=== PATIENT | male | born 1955 | race African-American/Black ===

== ENCOUNTER 2018-09-12 18:56 | Inpatient (IN) ==
[2018-09-12 19:38] LABS: Basophils # 0.1 10*3/uL (0.0-0.2); Basophils % 0.4 % (0.0-0.8); Eosinophils # 0.2 10*3/uL (0.0-0.87); Eosinophils % 1.6 % (0.00-10.9); Hematocrit 33.8 VOL% (42.0-52.0); Hemoglobin 11.3 GM/DL (14.0-18.0); Immature Granulocytes % 0.8 %; Lymphocytes # 1.5 10*3/uL (1.4-4.0); Lymphocytes % 11.5 % (21.2-54.2); Mean Corpuscular HGB Conc 33.4 GM/DL (32-36); Mean Corpuscular Volume 92.9 FL (87-102); Mean Platelet Volume 8.8 FL (9.6-12.0); Monocytes % 4.3 % (1.7-12.7); NRBC # 0.03 10*3/uL; Neutrophils % 81.4 % (38.7-73.9); Platelet Count 185 T/CUMM (130-400); Red Blood Count 3.64 MC/CUMM (3.8-5.5); Red Cell Distribution Width 13.2 % (9.3-17.3); White Blood Count 12.9 T/CUMM (4-12)
[2018-09-12 19:51] LABS: INR 0.9; PT Patient Result 10.3 SECS
[2018-09-12 19:56] LABS: Alanine Aminotransferase 28 U/L (16-61); Albumin 3.4 G/DL (3.4-5.0); Alkaline Phosphatase 88 U/L (45-117); Aspartate Amino Transferase 59 U/L (0-37); Blood Urea Nitrogen 10 MG/DL (7-18); Glucose 94 MG/DL (74-106); Osmolality,Calculated 275.5 MOS/KG (273-304); Total Protein 8.7 G/DL (6.4-8.3)
[2018-09-12] MEDS ORDERED: POTASSIUM CHLORIDE 20 MEQ TABLET PO STA (21:10)
[2018-09-12] MEDS ORDERED: SODIUM CHLORIDE 0.9% 1,850 ML IV ONE (21:19)
[2018-09-12] MEDS ORDERED: THIAMINE INJ 100 MG, FOLIC ACID INJ 1 MG, MAGNESIUM SULF INJ 2 GM, MULTIVITAMIN INJ 10 ... IV ONE (21:26)
[2018-09-12] MEDS ORDERED: PIPERACILLIN/TAZOBACTAM 3,375 MG in SODIUM CHLORIDE 0.9% 100 ML IV SCH (21:30)
[2018-09-12 23:20] LABS: Bacteria,Urine Many /HPF (Few); Bilirubin,Urine Negative (Negative); Glucose,Urine (UA) Negative (Negative); Ketones,Urine Negative (Negative); Mucus,Urine Occasional /LPF (Occasional); Nitrite,Urine Negative (Negative); Protein,Urine >=500 MG/DL; Urine Specific Gravity 1.022 (1.001-1.035); Urine Urobilinogen < 2.0 EU/DL (0.2-1.0)
[2018-09-12 23:23] LABS: Apearance,Urine Turbid (Clear); RBC,Urine TNTC /HPF (0-4); Urine Color Red (Yellow)
[2018-09-12 23:25] LABS: WBC,Urine 40 /HPF (0-6)
[2018-09-12 23:26] LABS: Blood, Urine Large mg/dL (Negative)
[2018-09-13] MEDS ORDERED: BISACODYL 5 MG TABLET PO PRN (01:48)
[2018-09-13] MEDS ORDERED: diphenhydrAMINE CAP 25 MG CAPSULE PO PRN (01:48)
[2018-09-13] MEDS ORDERED: ACETAMINOPHEN 325 MG TABLET PO PRN (01:48)
[2018-09-13] MEDS ORDERED: ONDANSETRON 4 MG/2 ML VIAL IV PRN (01:48)
[2018-09-13] MEDS ORDERED: SODIUM CHLORIDE 0.9% 1,000 ML IV SCH (02:00)
[2018-09-13 02:49] LABS: Risk Ratio 1.4
[2018-09-13] MEDS: hydrALAZINE 20 MG/1 ML VIAL IV PRN ×2 (04:29→11:07)
[2018-09-13] MEDS: MORPHINE 4 MG/1 ML VIAL IV PRN ×2 (06:43→10:40)
[2018-09-13] MEDS: MEROPENEM 500 MG in SODIUM CHLORIDE 0.9% 100 ML IV SCH ×2 (06:47→18:00)
[2018-09-13 08:02] LABS: PT Patient Result 10.9 SECS; Partial Thromboplastin Time 25.6 SECS (0-40)
[2018-09-13] MEDS ORDERED: LACTATED RINGERS 1,000 ML IV ONE (08:02)
[2018-09-13 08:07] LABS: Basophils % 0.2 % (0.0-0.8); Eosinophils % 0.1 % (0.00-10.9); Hematocrit 25.6 VOL% (42.0-52.0); Immature Granulocytes % 0.7 %; Immature Granulocytes Absolute 0.12 #; Lymphocytes # 0.7 10*3/uL (1.4-4.0); Lymphocytes % 3.6 % (21.2-54.2); Mean Corpuscular Volume 92.4 FL (87-102); Monocytes % 3.7 % (1.7-12.7); Neutrophils % 91.7 % (38.7-73.9); Platelet Count 169 T/CUMM (130-400); Red Cell Distribution Width 13.5 % (9.3-17.3)
[2018-09-13 08:11] LABS: Red Blood Count 2.77 MC/CUMM (3.8-5.5); White Blood Count 18.3 T/CUMM (4-12)
[2018-09-13 08:12] LABS: Hemoglobin 8.7 GM/DL (14.0-18.0)
[2018-09-13] MEDS ORDERED: SODIUM CHLORIDE 0.9% 1,000 ML IV PRN ×2 (08:15→14:46)
[2018-09-13 08:25] LABS: Band Neutrophils 5 % (0-10); Calcium 8.3 MG/DL (8.5-10.1); Hypochromasia 1+; Lymphocytes 3 % (20-55); Osmolality,Calculated 276.7 MOS/KG (273-304); Platelet Estimate Adequate; Segmented Neutrophils 88 % (50-85); Total Cells Counted 100; Total Protein 7.5 G/DL (6.4-8.3)
[2018-09-13] MEDS ORDERED: THIAMINE INJ 100 MG, FOLIC ACID INJ 1 MG, MULTIVITAMIN INJ 10 ML in SODIUM CHLORIDE 0.9... IV ONE (09:00)
[2018-09-13 10:02] LABS: Folate 5.2 NG/ML (5.4-24.0)
[2018-09-13] MEDS: DUTASTERIDE 0.5 MG CAPSULE PO SCH (13:21)
[2018-09-13] MEDS: chlordiazePOXIDE 25 MG CAPSULE PO SCH ×3 (13:21→20:53)
[2018-09-13 15:58] LABS: Hepatitis B Core IgM Quant 0.05 Index; Hepatitis B Surface Ag Quant < 0.10 Index; Hepatitis B Surface Ag Result Negative (Negative); Hepatitis C Virus Ab Quant 0.06 Index; Hepatitis C Virus Ab Result Negative (Negative)
[2018-09-13] MEDS: LACTATED RINGERS 1,000 ML IV SCH ×2 (17:30→18:00)
[2018-09-13 18:18] LABS: Hematocrit 34.9 VOL% (42.0-52.0); Hemoglobin 11.5 GM/DL (14.0-18.0)
[2018-09-13] MEDS: PANTOPRAZOLE 40 MG TABLET PO SCH (19:59)
[2018-09-13] MEDS: FOLIC ACID 1 MG TABLET PO SCH (20:53)
[2018-09-14] MEDS: LACTATED RINGERS 1,000 ML IV SCH ×2 (01:02→11:29)
[2018-09-14 01:31] LABS: Hematocrit 30.4 VOL% (42.0-52.0); Hemoglobin 10.5 GM/DL (14.0-18.0)
[2018-09-14] MEDS: MEROPENEM 500 MG in SODIUM CHLORIDE 0.9% 100 ML IV SCH ×3 (02:38→19:00)
[2018-09-14] MEDS: chlordiazePOXIDE 25 MG CAPSULE PO SCH ×4 (02:40→17:00)
[2018-09-14 05:05] LABS: Basophils % 0.2 % (0.0-0.8); Eosinophils # 0.3 10*3/uL (0.0-0.87); Eosinophils % 3.4 % (0.00-10.9); Hematocrit 29.2 VOL% (42.0-52.0); Hemoglobin 9.9 GM/DL (14.0-18.0); Immature Granulocytes % 0.6 %; Immature Granulocytes Absolute 0.06 #; Lymphocytes # 1.3 10*3/uL (1.4-4.0); Lymphocytes % 13.6 % (21.2-54.2); Mean Corpuscular HGB Conc 33.9 GM/DL (32-36); Mean Corpuscular Volume 90.4 FL (87-102); Mean Platelet Volume 9.8 FL (9.6-12.0); Monocytes % 6.6 % (1.7-12.7); Neutrophils % 75.6 % (38.7-73.9); Platelet Count 118 T/CUMM (130-400); Red Blood Count 3.23 MC/CUMM (3.8-5.5); Red Cell Distribution Width 13.8 % (9.3-17.3); White Blood Count 9.5 T/CUMM (4-12)
[2018-09-14 05:42] LABS: Albumin 2.1 G/DL (3.4-5.0); Bilirubin,Direct 0.31 MG/DL (0.0-0.20); Bilirubin,Indirect 1.8 MG/DL (0.0-1.0); Bilirubin,Total 2.1 MG/DL (0.2-1.0); Total Protein 5.9 G/DL (6.4-8.3)
[2018-09-14 07:23] LABS: Hematocrit 33.1 VOL% (42.0-52.0); Hemoglobin 11.4 GM/DL (14.0-18.0)
[2018-09-14] MEDS: DUTASTERIDE 0.5 MG CAPSULE PO SCH (08:27)
[2018-09-14] MEDS: PANTOPRAZOLE 40 MG TABLET PO SCH ×2 (08:27→19:57)
[2018-09-14] MEDS: FOLIC ACID 1 MG TABLET PO SCH ×2 (08:28→21:39)
[2018-09-14 08:37] LABS: Albumin 2.5 G/DL (3.4-5.0); Bilirubin,Total 1.5 MG/DL (0.2-1.0); Calcium 8.6 MG/DL (8.5-10.1); Osmolality,Calculated 272.7 MOS/KG (273-304); Total Protein 6.9 G/DL (6.4-8.3)
[2018-09-14] MEDS ORDERED: PROPOFOL 200 MG/20 ML VIAL IV ONE (09:00)
[2018-09-14] MEDS ORDERED: LIDOCAINE 2% 5 ML VIAL ONE (09:00)
[2018-09-14] MEDS: BISACODYL 5 MG TABLET PO SCH ×2 (11:31→18:02)
[2018-09-14] MEDS: ALBUTEROL/IPRATROPIUM 3 ML NEB RESP TX SCH ×4 (12:11→23:35)
[2018-09-14 13:06] LABS: Hematocrit 30.4 VOL% (42.0-52.0); Hemoglobin 10.4 GM/DL (14.0-18.0)
[2018-09-14] MEDS: SKIN HEALING OINT (AQUAPHOR) 50 GM TUBE TOP SCH (13:27)
[2018-09-14] MEDS ORDERED: POLYETHYLENE GLYCOL POWDER 255 GM BOTTLE PO ONE (18:00)
[2018-09-14] MEDS ORDERED: MAGNESIUM CITRATE 300 ML BOTTLE PO ONE (21:00)
[2018-09-14] MEDS: LORazepam 2 MG/1 ML VIAL IV PRN (21:47)
[2018-09-15] MEDS: chlordiazePOXIDE 25 MG CAPSULE PO SCH ×3 (00:30→15:27)
[2018-09-15 00:57] LABS: Hematocrit 29.2 VOL% (42.0-52.0); Hemoglobin 9.6 GM/DL (14.0-18.0)
[2018-09-15] MEDS ORDERED: LIDOCAINE 100 MG/5 ML SYRINGE ONE (01:49)
[2018-09-15] MEDS ORDERED: PROPOFOL 200 MG/20 ML VIAL IV ONE (01:49)
[2018-09-15] MEDS: LACTATED RINGERS 1,000 ML IV SCH ×2 (02:35→02:37)
[2018-09-15] MEDS: BISACODYL 5 MG TABLET PO SCH (02:36)
[2018-09-15] MEDS: MEROPENEM 500 MG in SODIUM CHLORIDE 0.9% 100 ML IV SCH ×2 (02:36→10:00)
[2018-09-15] MEDS: ALBUTEROL/IPRATROPIUM 3 ML NEB RESP TX SCH ×6 (02:50→23:30)
[2018-09-15 06:07] LABS: Basophils % 0.1 % (0.0-0.8); Eosinophils # 0.3 10*3/uL (0.0-0.87); Eosinophils % 3.6 % (0.00-10.9); Hematocrit 31.5 VOL% (42.0-52.0); Hemoglobin 10.4 GM/DL (14.0-18.0); Immature Granulocytes % 0.9 %; Immature Granulocytes Absolute 0.07 #; Lymphocytes # 1.2 10*3/uL (1.4-4.0); Lymphocytes % 15.5 % (21.2-54.2); Mean Corpuscular Volume 93.8 FL (87-102); Mean Platelet Volume 9.4 FL (9.6-12.0); Monocytes % 8.4 % (1.7-12.7); Neutrophils % 71.5 % (38.7-73.9); Platelet Count 148 T/CUMM (130-400); Red Blood Count 3.36 MC/CUMM (3.8-5.5); Red Cell Distribution Width 14.3 % (9.3-17.3); White Blood Count 7.8 T/CUMM (4-12)
[2018-09-15] MEDS: PANTOPRAZOLE 40 MG TABLET PO SCH ×2 (06:16→19:28)
[2018-09-15 06:23] LABS: Calcium 8.7 MG/DL (8.5-10.1); Osmolality,Calculated 276.4 MOS/KG (273-304)
[2018-09-15 06:57] LABS: Albumin (SPE) Rel % 52.6 %; Alpha 1 (SPE) Rel % 3.5 %; Alpha 2 (SPE) Rel % 7.9 %; Gamma (SPE) Rel % 19.9 %
[2018-09-15] MEDS ORDERED: MAGNESIUM SULF RIDER 2 GM in PREMIX 1 EACH IV ONE (07:28)
[2018-09-15 07:32] LABS: Albumin (SPE) 3.2 G/DL (3.2-5.3); Alpha 1 (SPE) 0.2 G/DL (0.1-0.4); Alpha 2 (SPE) 0.5 G/DL (0.4-1.0)
[2018-09-15 07:33] LABS: Beta (SPE) Rel % 16.1 %; Gamma (SPE) 1.2 G/DL (0.7-1.7)
[2018-09-15] MEDS: DUTASTERIDE 0.5 MG CAPSULE PO SCH (08:40)
[2018-09-15] MEDS: FOLIC ACID 1 MG TABLET PO SCH ×2 (08:40→20:37)
[2018-09-15] MEDS: SKIN HEALING OINT (AQUAPHOR) 50 GM TUBE TOP SCH (08:40)
[2018-09-15] MEDS: TAMSULOSIN 0.4 MG CAPSULE PO SCH ×2 (09:30→20:37)
[2018-09-15] MEDS: POTASSIUM CHLORIDE RIDER 10 MEQ in PREMIX 1 EACH IV SCH ×7 (09:53→21:41)
[2018-09-15] MEDS: MAGNESIUM SULFATE 1 GM/2 ML VIAL IM SCH ×2 (10:02→16:49)
[2018-09-15] MEDS ORDERED: AMPICILLIN/SULBACTAM 3,000 MG in SODIUM CHLORIDE 0.9% 100 ML IV SCH (12:00)
[2018-09-15] MEDS: LORazepam 2 MG/1 ML VIAL IV PRN ×2 (15:23→20:11)
[2018-09-15] MEDS: hydrALAZINE 20 MG/1 ML VIAL IV PRN (15:26)
[2018-09-15] MEDS: ceFAZolin 1,000 MG in SYRINGE 1 EACH IV SCH ×2 (15:47→21:38)
[2018-09-16] MEDS: chlordiazePOXIDE 25 MG CAPSULE PO SCH (00:26)
[2018-09-16] MEDS: ALBUTEROL/IPRATROPIUM 3 ML NEB RESP TX SCH ×6 (02:50→23:00)
[2018-09-16] MEDS: MORPHINE 4 MG/1 ML VIAL IV PRN (03:07)
[2018-09-16] MEDS: hydrALAZINE 20 MG/1 ML VIAL IV PRN ×2 (04:44→13:40)
[2018-09-16] MEDS: LORazepam 2 MG/1 ML VIAL IV PRN ×2 (05:14→23:35)
[2018-09-16 05:33] LABS: Basophils % 0.1 % (0.0-0.8); Eosinophils # 0.1 10*3/uL (0.0-0.87); Hematocrit 28.5 VOL% (42.0-52.0); Hemoglobin 9.7 GM/DL (14.0-18.0); Immature Granulocytes % 0.6 %; Immature Granulocytes Absolute 0.05 #; Lymphocytes # 0.6 10*3/uL (1.4-4.0); Lymphocytes % 6.9 % (21.2-54.2); Mean Corpuscular Volume 91.9 FL (87-102); Mean Platelet Volume 9.2 FL (9.6-12.0); Neutrophils % 82.4 % (38.7-73.9); Platelet Count 192 T/CUMM (130-400); Red Cell Distribution Width 14.1 % (9.3-17.3); White Blood Count 7.9 T/CUMM (4-12)
[2018-09-16 05:55] LABS: Calcium 9.4 MG/DL (8.5-10.1); Osmolality,Calculated 281.1 MOS/KG (273-304)
[2018-09-16] MEDS: LACTATED RINGERS 1,000 ML IV SCH ×3 (06:09→23:26)
[2018-09-16] MEDS: ceFAZolin 1,000 MG in SYRINGE 1 EACH IV SCH ×3 (06:16→20:11)
[2018-09-16] MEDS: PANTOPRAZOLE 40 MG TABLET PO SCH ×2 (06:20→20:10)
[2018-09-16] MEDS ORDERED: MAGNESIUM SULF RIDER 4 GM in PREMIX 1 EACH IV ONE (07:25)
[2018-09-16] MEDS: POTASSIUM CHLORIDE 20 MEQ TABLET PO SCH ×3 (08:27→15:27)
[2018-09-16] MEDS: MAGNESIUM SULFATE 1 GM/2 ML VIAL IM SCH ×3 (08:30→20:18)
[2018-09-16] MEDS: DUTASTERIDE 0.5 MG CAPSULE PO SCH (09:16)
[2018-09-16] MEDS: FOLIC ACID 1 MG TABLET PO SCH ×2 (09:16→20:10)
[2018-09-16] MEDS: SKIN HEALING OINT (AQUAPHOR) 50 GM TUBE TOP SCH (09:16)
[2018-09-16] MEDS: TAMSULOSIN 0.4 MG CAPSULE PO SCH ×2 (09:16→20:10)
[2018-09-16 13:57] LABS: Total Protein 24 Hr Ur Result 1584 MG/24HR (0-149.1); Total Volume,Urine 4800 ML (400-2000)
[2018-09-16] MEDS ORDERED: METOPROLOL TARTRATE 50 MG TABLET PO ONE (18:09)
[2018-09-16] MEDS: NICOTINE 21 MG/24 HR PATCH TRANSDERM PRN (22:02)
[2018-09-17] MEDS: ALBUTEROL/IPRATROPIUM 3 ML NEB RESP TX SCH ×6 (02:52→22:22)
[2018-09-17] MEDS: hydrALAZINE 20 MG/1 ML VIAL IV PRN (04:39)
[2018-09-17] MEDS: ceFAZolin 1,000 MG in SYRINGE 1 EACH IV SCH ×3 (04:40→21:05)
[2018-09-17 05:29] LABS: Basophils % 0.1 % (0.0-0.8); Eosinophils # 0.1 10*3/uL (0.0-0.87); Eosinophils % 1.3 % (0.00-10.9); Hematocrit 31.3 VOL% (42.0-52.0); Hemoglobin 10.6 GM/DL (14.0-18.0); Immature Granulocytes % 0.8 %; Immature Granulocytes Absolute 0.08 #; Lymphocytes # 0.9 10*3/uL (1.4-4.0); Lymphocytes % 8.3 % (21.2-54.2); Mean Corpuscular HGB Conc 33.9 GM/DL (32-36); Mean Corpuscular Volume 91.5 FL (87-102); Mean Platelet Volume 9.5 FL (9.6-12.0); Neutrophils % 74.5 % (38.7-73.9); Platelet Count 239 T/CUMM (130-400); Red Blood Count 3.42 MC/CUMM (3.8-5.5); Red Cell Distribution Width 13.7 % (9.3-17.3); White Blood Count 10.3 T/CUMM (4-12)
[2018-09-17 05:42] LABS: Calcium 9.7 MG/DL (8.5-10.1)
[2018-09-17] MEDS: amLODIPine 10 MG TABLET PO SCH (08:16)
[2018-09-17] MEDS: PANTOPRAZOLE 40 MG TABLET PO SCH ×2 (08:16→18:10)
[2018-09-17] MEDS: TAMSULOSIN 0.4 MG CAPSULE PO SCH ×2 (08:16→21:05)
[2018-09-17] MEDS: FOLIC ACID 1 MG TABLET PO SCH ×2 (08:16→21:05)
[2018-09-17] MEDS: METOPROLOL TARTRATE 25 MG TABLET PO SCH ×2 (08:16→21:04)
[2018-09-17] MEDS: DUTASTERIDE 0.5 MG CAPSULE PO SCH (08:21)
[2018-09-17] MEDS: SKIN HEALING OINT (AQUAPHOR) 50 GM TUBE TOP SCH (09:43)
[2018-09-17] MEDS: LACTATED RINGERS 1,000 ML IV SCH (12:08)
[2018-09-17] MEDS: LORazepam 2 MG/1 ML VIAL IV PRN (15:17)
[2018-09-17] MEDS: NICOTINE 21 MG/24 HR PATCH TRANSDERM PRN (22:10)
[2018-09-18] MEDS: LACTATED RINGERS 1,000 ML IV SCH (01:27)
[2018-09-18 02:44] LABS: Basophils % 0.2 % (0.0-0.8); Eosinophils # 0.2 10*3/uL (0.0-0.87); Eosinophils % 2.2 % (0.00-10.9); Hematocrit 29.2 VOL% (42.0-52.0); Hemoglobin 9.8 GM/DL (14.0-18.0); Immature Granulocytes % 0.9 %; Immature Granulocytes Absolute 0.09 #; Lymphocytes # 1.2 10*3/uL (1.4-4.0); Mean Corpuscular HGB Conc 33.6 GM/DL (32-36); Mean Corpuscular Volume 91.8 FL (87-102); Mean Platelet Volume 9.1 FL (9.6-12.0); Monocytes % 15.6 % (1.7-12.7); Neutrophils % 68.1 % (38.7-73.9); Platelet Count 259 T/CUMM (130-400); Red Blood Count 3.18 MC/CUMM (3.8-5.5); Red Cell Distribution Width 13.8 % (9.3-17.3); White Blood Count 9.5 T/CUMM (4-12)
[2018-09-18 02:58] LABS: Calcium 9.4 MG/DL (8.5-10.1); Osmolality,Calculated 272.8 MOS/KG (273-304)
[2018-09-18] MEDS: ALBUTEROL/IPRATROPIUM 3 ML NEB RESP TX SCH ×6 (03:25→22:56)
[2018-09-18 03:48] LABS: Band Neutrophils 3 % (0-10); Eosinophils 2 % (0-10); Lymphocytes 13 % (20-55); Segmented Neutrophils 66 % (50-85); Total Cells Counted 100
[2018-09-18 03:49] LABS: Platelet Estimate Normal
[2018-09-18] MEDS: ceFAZolin 1,000 MG in SYRINGE 1 EACH IV SCH ×3 (05:45→21:28)
[2018-09-18] MEDS: PANTOPRAZOLE 40 MG TABLET PO SCH ×2 (06:12→21:25)
[2018-09-18] MEDS: FOLIC ACID 1 MG TABLET PO SCH ×2 (08:50→21:25)
[2018-09-18] MEDS: amLODIPine 10 MG TABLET PO SCH (08:50)
[2018-09-18] MEDS: DUTASTERIDE 0.5 MG CAPSULE PO SCH (08:50)
[2018-09-18] MEDS: TAMSULOSIN 0.4 MG CAPSULE PO SCH ×2 (08:50→21:25)
[2018-09-18] MEDS: METOPROLOL TARTRATE 25 MG TABLET PO SCH ×2 (08:50→21:25)
[2018-09-18] MEDS: SKIN HEALING OINT (AQUAPHOR) 50 GM TUBE TOP SCH (08:51)
[2018-09-18] MEDS ORDERED: MAGNESIUM SULF RIDER 4 GM in PREMIX 1 EACH IV ONE (09:00)
[2018-09-18] MEDS ORDERED: COLCHICINE 0.6 MG CAPSULE PO ONE ×2 (10:25→12:00)
[2018-09-18] MEDS ORDERED: LACTULOSE 20 GM/30 ML UDCUP PO ONE (10:33)
[2018-09-18] MEDS ORDERED: LIDOCAINE 2% TOP JELLY 20 ML VIAL INTRAURETH ONE (10:49)
[2018-09-18] MEDS ORDERED: BISACODYL 10 MG SUPP RECTAL ONE (11:30)
[2018-09-18 13:03] LABS: Cholesterol Crystals None Seen /LPF
[2018-09-18 13:17] LABS: Lymphocytes,Synovial Fluid 4 %; Neutrophils,Synovial Fluid 96 %
[2018-09-18] MEDS: MAGNESIUM CHLORIDE 64 MG TABLET PO SCH ×2 (13:24→21:25)
[2018-09-18] MEDS: NICOTINE 21 MG/24 HR PATCH TRANSDERM PRN (21:43)
[2018-09-19] MEDS: ALBUTEROL/IPRATROPIUM 3 ML NEB RESP TX SCH ×5 (02:57→19:29)
[2018-09-19] MEDS: MORPHINE 4 MG/1 ML VIAL IV PRN (04:36)
[2018-09-19] MEDS: ceFAZolin 1,000 MG in SYRINGE 1 EACH IV SCH ×3 (04:38→20:45)
[2018-09-19 05:36] LABS: Basophils % 0.2 % (0.0-0.8); Eosinophils # 0.3 10*3/uL (0.0-0.87); Hematocrit 29.4 VOL% (42.0-52.0); Hemoglobin 9.4 GM/DL (14.0-18.0); Immature Granulocytes Absolute 0.09 #; Mean Corpuscular Volume 92.5 FL (87-102); Mean Platelet Volume 9.4 FL (9.6-12.0); Monocytes % 14.9 % (1.7-12.7); Neutrophils % 69.9 % (38.7-73.9); Platelet Count 386 T/CUMM (130-400); Red Blood Count 3.18 MC/CUMM (3.8-5.5); Red Cell Distribution Width 13.7 % (9.3-17.3); White Blood Count 8.6 T/CUMM (4-12)
[2018-09-19 05:41] LABS: Calcium 9.5 MG/DL (8.5-10.1); Osmolality,Calculated 268.1 MOS/KG (273-304)
[2018-09-19] MEDS: PANTOPRAZOLE 40 MG TABLET PO SCH ×2 (07:17→20:44)
[2018-09-19 08:54] LABS: 24 Hr Protein (Bench) 1584 MG/24HR (0-149.1)
[2018-09-19] MEDS: SKIN HEALING OINT (AQUAPHOR) 50 GM TUBE TOP SCH (09:00)
[2018-09-19] MEDS: amLODIPine 10 MG TABLET PO SCH (09:00)
[2018-09-19] MEDS: METOPROLOL TARTRATE 25 MG TABLET PO SCH ×2 (09:00→20:46)
[2018-09-19] MEDS ORDERED: NEOMYCIN/POLYMYXIN IRRIG SOLN 1 ML AMP BLADDERIRR ONE (09:49)
[2018-09-19] MEDS ORDERED: LACTATED RINGERS 1,000 ML IV SCH (10:30)
[2018-09-19] MEDS ORDERED: LIDOCAINE 2% TOP JELLY 20 ML VIAL INTRAURETH ONE (10:32)
[2018-09-19] MEDS ORDERED: PROPOFOL 200 MG/20 ML VIAL IV ONE (11:36)
[2018-09-19] MEDS ORDERED: fentaNYL 100 MCG/2 ML VIAL ONE (11:37)
[2018-09-19] MEDS ORDERED: SEVOFLURANE 1 UNIT/15 MINUTE INH ONE (11:37)
[2018-09-19] MEDS ORDERED: ONDANSETRON 4 MG/2 ML VIAL ONE (11:37)
[2018-09-19] MEDS ORDERED: MIDAZOLAM 2 MG/2 ML VIAL ONE (11:37)
[2018-09-19] MEDS: FOLIC ACID 1 MG TABLET PO SCH ×2 (12:03→20:45)
[2018-09-19] MEDS: DUTASTERIDE 0.5 MG CAPSULE PO SCH (12:03)
[2018-09-19] MEDS: TAMSULOSIN 0.4 MG CAPSULE PO SCH ×2 (12:03→20:46)
[2018-09-19] MEDS: MAGNESIUM CHLORIDE 64 MG TABLET PO SCH ×2 (12:03→20:45)
[2018-09-19] MEDS: LORazepam 2 MG/1 ML VIAL IV PRN (12:06)
[2018-09-20] MEDS: ALBUTEROL/IPRATROPIUM 3 ML NEB RESP TX SCH ×8 (00:30→23:36)
[2018-09-20] MEDS: ceFAZolin 1,000 MG in SYRINGE 1 EACH IV SCH ×3 (04:52→21:23)
[2018-09-20] MEDS: SKIN HEALING OINT (AQUAPHOR) 50 GM TUBE TOP SCH (08:28)
[2018-09-20] MEDS: amLODIPine 10 MG TABLET PO SCH (08:28)
[2018-09-20] MEDS: DUTASTERIDE 0.5 MG CAPSULE PO SCH (08:28)
[2018-09-20] MEDS: MAGNESIUM CHLORIDE 64 MG TABLET PO SCH ×2 (08:28→22:18)
[2018-09-20] MEDS: TAMSULOSIN 0.4 MG CAPSULE PO SCH ×2 (08:28→21:24)
[2018-09-20] MEDS: FOLIC ACID 1 MG TABLET PO SCH ×2 (08:28→21:24)
[2018-09-20] MEDS: COLCHICINE 0.6 MG CAPSULE PO SCH (08:28)
[2018-09-20] MEDS: POLYETHYLENE GLYCOL POWDER 17 GM PACK PO SCH (08:29)
[2018-09-20] MEDS: METOPROLOL TARTRATE 25 MG TABLET PO SCH ×2 (08:29→21:24)
[2018-09-21] MEDS: ALBUTEROL/IPRATROPIUM 3 ML NEB RESP TX SCH ×6 (04:27→22:34)
[2018-09-21] MEDS: ceFAZolin 1,000 MG in SYRINGE 1 EACH IV SCH ×3 (05:14→20:55)
[2018-09-21] MEDS: PANTOPRAZOLE 40 MG TABLET PO SCH ×4 (07:00→19:56)
[2018-09-21] MEDS: DUTASTERIDE 0.5 MG CAPSULE PO SCH (09:37)
[2018-09-21] MEDS: COLCHICINE 0.6 MG CAPSULE PO SCH (09:37)
[2018-09-21] MEDS: amLODIPine 10 MG TABLET PO SCH (09:38)
[2018-09-21] MEDS: POLYETHYLENE GLYCOL POWDER 17 GM PACK PO SCH (09:38)
[2018-09-21] MEDS: TAMSULOSIN 0.4 MG CAPSULE PO SCH ×2 (09:38→20:55)
[2018-09-21] MEDS: SKIN HEALING OINT (AQUAPHOR) 50 GM TUBE TOP SCH (09:38)
[2018-09-21] MEDS: FOLIC ACID 1 MG TABLET PO SCH ×2 (09:38→20:55)
[2018-09-21] MEDS: METOPROLOL TARTRATE 25 MG TABLET PO SCH ×2 (09:38→20:55)
[2018-09-21] MEDS: MAGNESIUM CHLORIDE 64 MG TABLET PO SCH ×2 (09:39→20:54)
[2018-09-22] MEDS: ALBUTEROL/IPRATROPIUM 3 ML NEB RESP TX SCH ×6 (02:41→23:00)
[2018-09-22] MEDS: ceFAZolin 1,000 MG in SYRINGE 1 EACH IV SCH ×3 (04:20→21:39)
[2018-09-22] MEDS: PANTOPRAZOLE 40 MG TABLET PO SCH ×2 (06:04→21:40)
[2018-09-22] MEDS: SKIN HEALING OINT (AQUAPHOR) 50 GM TUBE TOP SCH (10:20)
[2018-09-22] MEDS: DUTASTERIDE 0.5 MG CAPSULE PO SCH (10:21)
[2018-09-22] MEDS: COLCHICINE 0.6 MG CAPSULE PO SCH (10:21)
[2018-09-22] MEDS: amLODIPine 10 MG TABLET PO SCH (10:21)
[2018-09-22] MEDS: TAMSULOSIN 0.4 MG CAPSULE PO SCH ×2 (10:22→21:40)
[2018-09-22] MEDS: METOPROLOL TARTRATE 25 MG TABLET PO SCH ×2 (10:22→21:40)
[2018-09-22] MEDS: MAGNESIUM CHLORIDE 64 MG TABLET PO SCH ×2 (10:22→21:40)
[2018-09-22] MEDS: FOLIC ACID 1 MG TABLET PO SCH ×2 (10:22→21:40)
[2018-09-22] MEDS: POLYETHYLENE GLYCOL POWDER 17 GM PACK PO SCH (10:22)
[2018-09-23] MEDS: ALBUTEROL/IPRATROPIUM 3 ML NEB RESP TX SCH ×6 (03:00→23:28)
[2018-09-23] MEDS: PANTOPRAZOLE 40 MG TABLET PO SCH ×2 (07:12→18:05)
[2018-09-23] MEDS: COLCHICINE 0.6 MG CAPSULE PO SCH (09:09)
[2018-09-23] MEDS: MAGNESIUM CHLORIDE 64 MG TABLET PO SCH ×2 (09:09→21:17)
[2018-09-23] MEDS: DUTASTERIDE 0.5 MG CAPSULE PO SCH (09:09)
[2018-09-23] MEDS: POLYETHYLENE GLYCOL POWDER 17 GM PACK PO SCH (09:10)
[2018-09-23] MEDS: SKIN HEALING OINT (AQUAPHOR) 50 GM TUBE TOP SCH (09:10)
[2018-09-23] MEDS: FOLIC ACID 1 MG TABLET PO SCH ×2 (09:10→21:17)
[2018-09-23] MEDS: TAMSULOSIN 0.4 MG CAPSULE PO SCH ×2 (09:10→21:17)
[2018-09-23] MEDS: METOPROLOL TARTRATE 25 MG TABLET PO SCH ×2 (09:10→21:17)
[2018-09-23] MEDS: amLODIPine 10 MG TABLET PO SCH (09:10)
[2018-09-24] MEDS: ALBUTEROL/IPRATROPIUM 3 ML NEB RESP TX SCH ×3 (03:48→11:25)
[2018-09-24] MEDS: PANTOPRAZOLE 40 MG TABLET PO SCH ×2 (06:31→19:05)
[2018-09-24] MEDS: MAGNESIUM CHLORIDE 64 MG TABLET PO SCH (09:14)
[2018-09-24] MEDS: amLODIPine 10 MG TABLET PO SCH (09:14)
[2018-09-24] MEDS: METOPROLOL TARTRATE 25 MG TABLET PO SCH (09:14)
[2018-09-24] MEDS: FOLIC ACID 1 MG TABLET PO SCH (09:14)
[2018-09-24] MEDS: TAMSULOSIN 0.4 MG CAPSULE PO SCH (09:14)
[2018-09-24] MEDS: DUTASTERIDE 0.5 MG CAPSULE PO SCH (09:15)
[2018-09-24] MEDS: SKIN HEALING OINT (AQUAPHOR) 50 GM TUBE TOP SCH (09:15)
[2018-09-24] MEDS: COLCHICINE 0.6 MG CAPSULE PO SCH (09:15)
[2018-09-24] MEDS: POLYETHYLENE GLYCOL POWDER 17 GM PACK PO SCH (09:15)
[2018-09-24 19:14] VITALS: BP 141/78
== END 2018-09-24 19:53 | disposition home or self-care (01) | DRG 695 ==
LOC: N.ED 18:56 → N.EDINP 09-13 01:49 → SUATTDRO 09-13 01:49 → N.3E 09-13 02:32
PROVIDERS: ADMIT Family Medicine; ATTEND Internal Medicine